=== PATIENT | male | born 1990 | race Caucasian/White ===

== ENCOUNTER 2024-08-24 09:42 | Outpatient (AMB) | payer BC, SELFPAY ==
--- OUTSIDE RECORDS SUMMARY | 2024-08-24 09:45 | XMS_ITS | Referral Summary ---
Author Organization [facility] Address [address] [place] [address] Care Team Providers Care Goat Herder Name Role Phone Yanet Rios MD Primary Care Provide r Allergies No known active allergies Active Problems Problem Noted Date Diagnosed Date Pain and swelling of right forearm 2014 Incidental lung nodule 09/10/2013 Weight gain 06/02/2012 High-risk sexual behavior 06/02/2012 Overview (01/24/2017): Hetersexual , unprotected, wants to check STD especially HIV Vitamin d deficiency 06/02/2012 ALT (SGPT) level raised 11/30/2011 Nicotine dependence 11/22/2011 Overview (01/24/2017): Quit Mid April 2012 with nicotine Cig (still on it) 24 ---18 Tattoo 11/21/2011 Acute reaction to stress 11/21/2011 Insomnia 11/21/2011 Anxiety 11/21/2011 Immunizations Immunization Administration Dates Next Due Pneumococcal Polysaccharide Vaccine, 23 Valent 0 11/30/2011 Tetanus Toxoid, Reduced Diph theria Toxoid, and Acellular Pertussis Vaccine, Adsorbed 07/27/2011 Social History Tobacco Use Types Packs/Day Years Used Date Smoking Tobacco: Every Day Comments::STARTED AGE 10 YR NOW 1 PPD LAST 7 YRS SINCE AGE 14 YR Sex and Gender Information Value Date Recorded Sex Assigned at Male 08/07/2023 7:53 AM EDT Legal Sex Male 7:44 AM EDT Gender Identity Not on file Sexual Orientation Not on file Last Filed Vital Signs Vital Sign Reading Time Taken Comments Blood Pressure 130/88 2014 3:39 PM EDT Pulse 80 2014 3:39 PM EDT Temperature - - Respiratory Rate - - Oxygen Saturation - - Inhaled Oxygen Concentration - - Weight 91.6 kg (202 lb) 02/03/2014 9:29 AM EDT Height 180.3 cm (5' 11 ) 02/03/2014 9:29 AM EDT Body Mass Index 28.17 02/03/2014 9:29 AM EDT Plan of Treatment Not on file Procedures * Due to [place] [employer] law, this organization might not be sharing negative HIV tests. Procedure Name Priority Date/Time Associated Diagnosis Comments HEPATITIS C ANTIBODY W/REFLEX TO HCV RNA, QUANTITATIVE PCR Routine 11/05/2023 4:50 PM EDT Procreation management investigation and testing from Last 3 Months or Most Recently Relevant to Health Maintenance Results * Due to [place] [employer] law, this organization might not be sharing negative HIV tests. * Hepatitis C Antibody w/Reflex to HCV RNA, Quantitative PCR (11/05/2023 4:50 PM EDT) Hepatitis C Antibody NON-REACT WAYNE NON-REACT WAYNE 11/06/2023 5:03 AM EDT [employer] Comment: HCV antibody was non-reactive. There is no laboratory evidence of HCV infection. In most cases, no further action is required. However, if recent HCV exposure is suspected, a test for HCV RNA (test code 27718) is suggested. For additional information please refer to http://education.[employer]/faq/CJD87n0 (This link is being provided for informational/ educational purposes only.) Blood Structure of peripheral vein / Unknown Venipuncture / Unknown 11/05/2023 4:50 PM EDT 11/05/2023 5:00 PM EDT Narrative SHIRA SNOWMEGHANNCHRISTOPHER - 11/06/2023 5:03 AM EDT [facility] Received Date: us Angelina Stewart NP LAB BLOOD ORDERABLES Fin al Result SHIRA MALIK [address] [facility] [address], [place] [address], [place] [phone] [facility] [address] [facility] [address], [place] [address], [place] [phone] from Last 3 Months or Most Recently Relevant to Health Maintenance Insurance [facility] HMO/POS Care Teams Goat Herder Relationship Specialty Start Date End Date Basia-Yanet Hurtado MD [address] [place] [address] PCP - General Family Medicine 08/07/23
--- OUTSIDE RECORDS SUMMARY | 2024-08-24 09:45 | XMS_ITS | Clinical Summary ---
Author Organization [facility] Address [address] [place] [address] Care Team Providers Care Plate Drying Machine Tender Name Role Phone Unavailable Primary Care Provider Unavailabl e Allergies No known active allergies Social History Tobacco Use Types Packs/Day Years Used Date Smoking Tobacco: Every Day Sex and Gender Information Value Date Recorded Sex Assigned at Not on file Legal Sex Male 9:59 AM EDT Gender Identity Not on file Sexual Orientation Not on file Last Filed Vital Signs Vital Sign Reading Time Taken Comments Blood Pressure 136/80 09/11/2017 8:56 AM EDT Pulse 96 09/11/2017 8:56 AM EDT Temperature - - Respiratory Rate - - Oxygen Saturation 97% 09/11/2017 8:56 AM EDT Inhaled Oxygen Concentration - - Weight 89.8 kg (198 lb) 09/11/2017 8:56 AM EDT Height 180.3 cm (5' 11 ) 09/11/2017 8:56 AM EDT Body Mass Index 27.62 09/11/2017 8:56 AM EDT Plan of Treatment Health Maintenance Due Date Last Done Comments Hepatitis C Screening 1989 DTaP/Tdap/Td (1 - Tdap) 08/13/2007 Hep B (1 of 3 - 19+ 3-dose series) 2008 COVID-19 Vaccine ( - 2023-2 5 season) 2024 Influenza (#1) 2024 Zoster (Shingrix) (1 of 2) 08/13/2039 HPV Vaccine Aged Out No longer eligi ble based on patient's age to complete this topic Hep A Aged Out No longer eligi ble based on patient's age to complete this topic Hib Aged Out No longer eligi ble based on patient's age to complete this topic Meningococcal ACWY Aged Out No longer eligible based on patient's age to complete this topic Pneumococcal Aged Out No longer eligi ble based on patient's age to complete this topic
--- OUTSIDE RECORDS SUMMARY | 2024-08-24 09:45 | XMS_ITS | Clinical Summary ---
Author Organization [facility] Address [address] [place] [address] Care Team Providers Care Tape Coater Name Role Phone Yanet Rios MD Primary [...] Toxoid, and Acellular Pertussis Vaccine, Adsorbed 07/27/2011 Family History Medical History Relation Name Comments Other Father Family History of diabetes mellitus Other Father's Sister Paternal aun t's history of Breast Cancer Other Maternal Grandfather Materna l grandfather's history of Acute Myocardial Infarction Other Other 1 Denied Family h istory of Hypertension Other Other 2 Denied Family h istory of Depression Other Paternal Grandfather Paterna l grandfather's history of Emphysema Other Paternal Grandmother Paterna l grandmother's history of Diabetes Mellitus Relation Name Status Comments Father Father's Sister Maternal Grandfather Other 1 Other 2 Paternal Grandfather Paternal Grandmother Social History Tobacco Use Types Packs/Day Years [...] 02/03/2014 9:29 AM EDT Plan of Treatment Health Maintenance Due Date Last Done Comments Varicella Vaccines (1 of 2 - 13+ 2-dose series) 2002 Hepatitis B Vaccines (1 of 3 - 19+ 3-dose series) 2008 Pneumococcal Vaccine: Pediat carroll (0-5 Years) and At-Risk Patients (6-50 Years) (2 of 2 - PCV) 11/29/2012 11/30/2011 DTaP,Tdap,and Td Vaccines (2 - Td or Tdap) 07/26/2021 07/27/2011 COVID-19 Vaccine ( - 2023- season) 2024 Alcohol/Substance Use Screening 05/06/2024 Depression Screening and Follow-Up 05/06/2024 Social Drivers of Health Annual Screening 05/06/2024 Influenza Vaccine (Season Ended) 2025 RSV Vaccine (60+ years old a nd patients) (1 - 1-dose 75+ series) 2064 HIV Screening Completed 11/05/2023 Hepatitis C Screening Completed 11/05/2023, 013 Procedures * Due to [place] state law, this organization might not be sharing negative HIV tests. Procedure Name Priority Date/Time Associated Diagnosis Comments HEPATITIS C ANTIBODY W/REFLEX TO HCV RNA, QUANTITATIVE PCR Routine 11/05/2023 4:50 PM EDT Procreation management investigation and testing from Last 3 Months or Most Recently Relevant to Health Maintenance Results * Due to [place] state law, this organization might not be sharing negative HIV tests. * Hepatitis C Antibody w/Reflex to HCV RNA, Quantitative PCR (11/05/2023 4:50 PM EDT) Hepatitis C Antibody NON-REACT WAYNE NON-REACT WAYNE 11/06/2023 5:03 AM EDT [employer] Comment: HCV antibody was non-reactive. There is no laboratory evidence of HCV infection. In most cases, no further action is required. However, if recent HCV exposure is suspected, a test for HCV RNA (test code 15779) is suggested. For additional information please refer to http://education.Robert Applebaum MD/faq/DMF32c8 (This link is being provided for informational/ educational purposes only.) Blood Structure of peripheral vein / Unknown Venipuncture / Unknown 11/05/2023 4:50 PM EDT 11/05/2023 5:00 PM EDT Narrative SHIRA MALIK - 11/06/2023 5:03 AM EDT [facility] Received Date: Angelina Stewart NP LAB BLOOD ORDERABLES Fin al Result SHIRA MALIK [address] [facility] [address], [place] [address], [place] [phone] [facility] [address] [facility] [address], [place] [address], [place] [phone] from Last 3 Months or Most Recently Relevant to Health Maintenance Insurance [facility] HMO/POS Care Teams Tape Coater Relationship Specialty Start Date End Date Basia-Yanet Hurtado MD [address] [place] [phone] PCP - General Family Medicine 08/07/23
--- NOTE | 2024-08-24 10:02 | A.OFFPC_ITS ---
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 ?? Prior PCP:?Rickie Brewer In [facility] Last office visit/CPE:?2 yrs Acute issue(s):?Difficulty w/ sleep. Witnessed apneic Headaches ?? PMHx:? Abnormal [facility] of lung @ [facility]. SurgHx:?[place] teeth FHx:? Dad: DM. Mom: palpitations. Aunts w/ Breast CA SocHx: Quit cigs 2018. EtOH: quit 2018. 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 1. Little interest or pleasure in doing things: not at all 2. Feeling down, depressed, or hopeless: not at all 3. Trouble falling or staying asleep, or sleeping too much: more than half the days 4. Feeling tired or having little energy: several days 5. Poor appetite or overeating: not at all 6. Feeling bad about yourself - or that you are a failure or have let yourself or your family down: not at all 7. Trouble concentrating on things, such as reading the newspaper or watching television: not at all 8. Moving or speaking so slowly that other people could have noticed. Or the opposite - being so fidgety or restless that you have been moving around a lot more than usual: not at all 9. Thoughts that you would be better off or of hurting yourself in some way: not at all Total score: 3 Depression Screening Interpretation: Negative Depression Screening Done: Yes 31370 - PHQ-9 Billing: Yes Source: Developed by Drs. Ahmet Huertas, Abiola Juan, Elias Jennings and colleagues, with an educational alonso from [employer]. Thrive Questionnaire Date Thrive assessed: 08/24/24 I am a: Patient What is your living situation today?: I have a steady place to live Within the past 12 months, did the food you bought not last and you didn't have the money to get more?: Never true Within the past 12 months, did you worry whether your food would run out before you got money to buy more?: Never true Do you have trouble paying for medicines?: No Do you have trouble getting transportation to medical appointments?: No Do you have trouble paying your heating and electricity bill?: No Do you have trouble taking care of your child, family member or friend?: No Do you have trouble with day-to-day activities such as bathing, preparing meals, shopping, managing finances, etc.?: No Are you currently unemployed and looking for a job?: No Are you interested in more education?: No Please select the resources that you would like help with: None Currently or been in a relationship where the following occur: No concerns reported THRIVE Score: 0 AUDIT C Alcohol Use Questionnaire (AUDIT-C) 1. How often do you have a drink containing alcohol?: Never 2. How many drinks containing alcohol do you have on a typical day when you are drinking?: 1 or 2 3. How often do you have six or more drinks on one occasion?: Never Total Score: 0 Score Reviewed/Action Taken: Yes VIJI-7 AMB Questionnaire VIJI-7 Date VIJI - 7 assessed: 08/24/24 Feeling nervous, anxious, or on edge: 1 = Several days Not being able to stop or control worryin = Not at all Worrying too much about different things: 0 = Not at all Trouble relaxin = Not at all Being so restless that it is hard to sit still: 0 = Not at all Becoming easily annoyed or irritable: 0 = Not at all Feeling afraid as if something awful might happen: 0 = Not at all Total VIJI-7 score (0-4 normal; 5-9 mild; 10-14 moderate; 15-21 severe): 1 Source: Developed by Drs. Ahmet Huertas, Abiola Juan, Elias Jennings and colleagues, with an educational alonso from [employer]. VIJI-7 Assessment Billing VIJI-7 Assessment Tool: VIJI-7 Assessment 66760 Review of Systems Const Denies chills, Denies fatigue, Denies fever(s), Denies headache(s) and Denies weakness ENT Denies dizziness and Denies headache(s) Card Denies chest pain, Denies lightheadedness, Denies dyspnea and Denies other (Palpitations) Resp Denies cough, Denies dyspnea, Denies wheezing and Denies other ( shortness of breath) Musc Denies numbness and Denies tingling Neuro Denies dizziness, Denies headache(s), Denies numbness, Denies tingling, Denies paresthesias and Denies weakness Psych Denies anxiety and Denies depression Endo Denies fatigue Aller/Immun Denies wheezing Physical exam (Primary Care) Vital Signs: Last Vital Signs Temp 98.0 F 08/24/24 10:10 Pulse 65 08/24/24 10:10 Resp 16 08/24/24 10:10 BP 120/70 08/24/24 10:10 Pulse Ox 95 08/24/24 10:10 Oxygen Delivery Method Room Air 08/24/24 10:10 BMI result Body Mass Index 33.0 Tobacco/Smoking Status: Tobacco use Status Tobacco use date assessed 08/24/24 08/24/24 10:11 Patient Tobacco Use Status Never used Tobacco 08/24/24 10:11 e-Cigarette/Vaping Use Never Used 08/24/24 10:11 PHQ-9: PHQ-9 Score PHQ-9: Total score 3 08/24/24 10:12 Depression Screening Interpretation: Negative Thrive Assessment: Date of Thrive Assessment Date Thrive assessed 08/24/24 08/24/24 10:11 Currently or been in a relationship where the following occur: No concerns reported Const General: no acute distress and well developed Nutritional Appearance: well nourished Orientation/consciousness: patient oriented x3 HENMT Head: Yes normocephalic and Yes atraumatic Eyes General: appearance normal, both eyes and all related structures Pupils: Equal, round and reactive pupils present EOM: EOMs intact bilaterally Resp Effort & Inspection: normal respiratory effort Auscultation: clear to auscultation bilaterally Cardio Rate: regular rate Rhythm: regular rhythm Heart sounds: S1 normal heart sound present, S2 normal heart sound present, no gallops, no murmurs and no rubs Neuro General: patient oriented x3 and gait normal Cranial nerves: Yes Equal, round and reactive pupils present Psych Affect: normal affect Coding Level of Care Code New Pt Level 3 (04997) Diagnoses Sleep apnea G47.30 Headache R51.9 Laboratory exam ordered as part of routine general medical examination Z00.00 Additional Codes VIJI-7 Assessment Billing - VIJI-7 Assessment Tool: VIJI-7 Assessment 88660 ([id number]) PHQ-9 - 38125 - PHQ-9 Billing: Yes ([id number]) Assessment & Plan Assessment & Plan (1) Sleep apnea: Code(s): G47.30 - Sleep apnea, unspecified Category: Medical Plan: Gasping,?holding?breath,?witnessed?apneic?events?by?partner?and?significant?head aches. Referred?to?Sleep?Medicine Advised?he?remains?sleeping?on?his?side (2) Headache: Code(s): R51.9 - Headache, unspecified Category: Medical Plan: As?above,?likely?secondary?to?sleep?apnea Advised?good?hydration (3) Laboratory exam ordered as part of routine general medical examination: Code(s): Z00.00 - Encounter for general adult medical examination without abnormal findings Category: Medical Plan: Check?labs Orders: Orders Comprehensive [place]. Panel Fast Today Z00.00 - Encounter for general adult medical examination without abnormal findings Microalbumin, Random (w Creat) Today I10 - Essential (primary) hypertension Lipid Panel Today Z00.00 - Encounter for general adult medical examination without abnormal findings TSH reflex Free T4 Today Z00.00 - Encounter for general adult medical examination without abnormal findings Complete Blood Count Auto Diff Today Z00.00 - Encounter for general adult medical examination without abnormal findings Prostate Specific Antigen Scr Today Z12.5 - Encounter for screening for malignant neoplasm of prostate UA CC w/rflx Micro + Cult Today Z00.00 - Encounter for general adult medical examination without abnormal findings Referrals Sleep Medicine Referral G47.30 - Sleep apnea, unspecified
[2024-08-24 10:10] VITALS: BP 120/70; PULSE 65; RESP 16; TEMP 36.7; O2SAT 95; BMI 33.0
== END 2024-08-24 12:29 | disposition home or self-care (01) ==
PROVIDERS: PCP Family Medicine; Visit Provider Family Medicine
DX: G47.30 Sleep apnea, unspecified (principal); R51.9 Headache, unspecified; Z00.00 Encounter for general adult medical examination without abnormal findings

== ENCOUNTER → 2024-08-24 09:42 | Outpatient (BNVA) | payer BC, SELFPAY | PROVIDERS: Visit Provider Family Medicine | DX: Z00.00 Encounter for general adult medical examination without abnormal findings (principal); G47.30 Sleep apnea, unspecified; R51.9 Headache, unspecified | CPT/HCPCS: 96127 ==

== ENCOUNTER 2024-10-13 13:48 | Outpatient (AMB) | payer BC, SELFPAY ==
--- NOTE | 2024-10-13 13:54 | A.OFFVIS_ITS ---
Vital Signs 10/13/24 13:56 Height 6 ft Weight 243 lb 4 oz BMI 33.0 Pulse 72 Pulse Source Pulse Oximeter Pulse Oximetry (%) 98 Oxygen Delivery Method Room Air Intake Visit Reasons: INP - Sleep apnea Intake Note: Patient presents ADMINISTRATIVE PROFESSIONAL Sleep Apnea. Gasping, holding breath, witnessed apneic events by partner and significant headaches. Patient also snores. Also states has had frequent headaches that start at back of head every day for weeks at a time(talking Tylenol everyday while attack) has not had one in few weeks. Accompanied by: Self / Same As Patient Allergies No Known Allergies Allergy (Verified 10/13/24 13:59) HPI Comments Details: 34 year old male is here for sleep evaluation. He gasps for air, snores loudly, holds his breath, per his . 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 Headaches usually come on in the evenings base of the head 6/10, throbbing localized, with photophobia/ phonophobia denies triggers of smells, n/v, denies gait or balance difficuty. This will occur for 3-4 days consecutively and then go away, he takes tylenolol. He tries to be in bed by 8 and gets up at 4am / 4pm. He has trouble falling asleep and staying asleep he takes Unisom daily. He feels chronically fatigued. RLS symptoms bilaterally uncomfortable sensation of the feet, has the urge to move them alot. Denies numbness, tingling, and burning pain. Denies bruxism. Mood, diet, and memory is stable. He is very active 3-4x a week, has a home gym, drinking 60% of body weight in water. FH of mom having anxiety and palpitations at 65, and dad at 69 passed due to C/V difficulties during triple by pass. 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 Current occupational exposures/hazards: Yes Cognitive needs: No Hearing needs: No Vision needs: No Physical Exam Vital Signs: Last Vital Signs Pulse 72 10/13/24 13:56 Pulse Ox 98 10/13/24 13:56 Oxygen Delivery Method Room Air 10/13/24 13:56 BMI result Body Mass Index 33.0 Const General: cooperative, comfortable and no acute distress Nutritional Appearance: average body habitus Orientation/consciousness: patient oriented x3 HEENT Face and sinus: Yes face symmetric Teeth and gingiva: other (mallampti score of 3) Eyes Pupils: Equal, round and reactive pupils present Neck Neck: Yes full ROM Resp Effort & Inspection: normal respiratory effort and able to speak in complete sentences Neuro General: patient oriented x3 and moves all extremities Cranial nerves: Yes Facial sensation intact/muscles of mastication intact, Yes Equal, round and reactive pupils present, Yes Normal accommodation reflex present, Yes Normal facial strength present, Yes Midline tongue present, Yes Ability to bilaterally rotate head present and Yes Ability to bilaterally elevate shoulders present Gait exam (Neuro): Normal gait present Motor exam (neuro): 5/5 motor strength present throughout and Normal motor muscle tone present throughout Deep tendon reflexes (DTR's): Right triceps reflex intensity grade: 2+, Left triceps reflex intensity grade: 2+, Rt Biceps (C5, C6): 2+, Left biceps reflex intensity grade: 2+, Right brachioradialis reflex intensity grade: 2+, Left brac hioradialis reflex intensity grade: 2+, Right patellar reflex intensity grade: 2+, Left patellar reflex intensity grade: 2+, Right ankle reflex intensity grade: 2+ and Left ankle reflex intensity grade: 2+ Psych Appearance: grossly normal Attitude: cooperative Thought process: Normal thought process present Thought content: Normal thought content present Assessment & Plan Assessment & Plan (1) Excessive daytime sleepiness: Code(s): G47.19 - Other hypersomnia Category: Medical Plan HST Evaluation of snoring and gasping. Labs to r/o deficiencies Orders: Orders Ferritin Today G47.19 - Other hypersomnia Vitamin D 25-OH Total Today G47.19 - Other hypersomnia RT home sleep study Today G47.19 - Other hypersomnia Homocysteine Today G47.19 - Other hypersomnia, G47.9 - Sleep disorder, unspecified, R53.83 - Other fatigue Methylmalonic Acid Today G47.19 - Other hypersomnia, G47.9 - Sleep disorder, unspecified, R53.83 - Other fatigue Vitamin B12 and Folate Today G47.19 - Other hypersomnia Patient Instructions: Sleep Hygiene provided: set a scheduled bedtime and wake time to help regulate the circadian rhythm and balance the release of pituitary hormones. Sleep in a dark room, temperatures below 68 degrees, and no devices n bed. Limit caffeinated products 6 hours prior to bed, and limit fluids 2-4 hours prior to bed. Gentle night yoga, diffusing essential oils, and playing soft music can be relaxing. Coding Level of Care Code New Pt Level 4 (54908) Diagnoses Excessive daytime sleepiness G47.19 Time Spent (min) 30 Comment kathleen evaluation of new patient Sleep Questionnaire Difficulty falling asleep: Yes Difficulty staying asleep?: Yes Number of arousals: 2-6 Snoring: Yes Witnessed apneas: Yes Gasping arousals: Yes Nocturia: Yes GERD: No Vivid dreams: Yes Acting out dreams: Yes Abnormal behavior in sleep: Yes Abnormal movements in sleep: Yes Morning headaches: No Excessive daytime sleepiness: Yes Daytime naps: Yes Restless legs: No Hallucinations: No Sleep paralysis: Yes Drop attacks: No Sleep Study: No CPAP: No
[2024-10-13 13:56] VITALS: PULSE 72; O2SAT 98; BMI 33.0
--- OUTSIDE RECORDS SUMMARY | 2024-10-13 16:24 | XMS_ITS | Clinical Summary ---
Author Organization [facility] Address [address] [place] [address] Care Team Providers Care Flower Maker Name Role Phone Unavailable Primary Care Provider [...] ( - 2023-2 5 season) 2024 Influenza (Season Ended) 2025 Zoster (Shingrix) (1 of 2) 08/13/2039 HPV [...]
== END 2024-10-13 14:41 | disposition home or self-care (01) ==
LOC: HO.HSMS 13:49
PROVIDERS: PCP Family Medicine; Visit Provider Physician Assistant Medical
DX: G47.19 Other hypersomnia (principal)
CPT/HCPCS: 99204

== ENCOUNTER 2024-10-29 10:00 | Outpatient (REF) | payer BC, SELFPAY ==
--- OUTSIDE RECORDS SUMMARY | 2024-10-29 11:30 | XMS_ITS | Clinical Summary ---
Author Organization [facility] Address [address] [place] [address] Care Team Providers Care Picture Framer Name Role Phone Unavailable Primary Care Provider [...]
[2024-10-29 11:32] LABS: MANUAL DIFF FLAG NO
[2024-10-29 11:36] LABS: Basophils Absolute Auto 0.1 X10*3/uL (0.0-0.2); Basophils Percent Auto 0.9 % (0-2); Eosinophils Absolute Auto 0.1 X10*3/uL (0.0-0.4); Eosinophils Percent Auto 1.4 % (0-4); Hematocrit 49.5 % (42.0-52.0); Hemoglobin 16.8 g/dl (14.0-18.0); Imm Gran Abs Auto 0.01 X10*3/uL (0.00-0.03); Imm Gran Pct Auto 0.2 % (0.0-0.4); Lymphocytes Absolute Auto 2.5 X10*3/uL (1.2-4.9); Lymphocytes Percent Auto 43.1 % (20-40); Mean Corpuscular HGB Conc 33.9 g/dl (31.0-36.0); Mean Corpuscular Hemoglobin 28.7 pg (27.0-33.0); Mean Corpuscular Volume 84.5 fL (80.0-98.0); Mean Platelet Volume 9.5 fL (9.4-12.4); Monocytes Absolute Auto 0.5 X10*3/uL (0.1-1.2); Monocytes Percent Auto 8.4 % (2-11); Neutrophils Absolute Auto 2.7 x10*3/uL (2.0-8.3); Platelet Count 284 X10*3/uL (160-400); Red Blood Count 5.86 X10*6/uL (4.60-5.80); Red Cell Distribution Width 12.4 % (11.0-16.0); White Blood Count 5.8 X10*3/uL (4.8-10.8)
[2024-10-29 12:08] LABS: Alanine Aminotransferase 85 U/L (0-40); Albumin Level 4.7 g/dL (3.5-5.0); Alkaline Phosphatase 84 U/L (39-117); Anion Gap 10 (12-20); Aspartate Amino Transferase 40 U/L (5-37); Bilirubin Total 0.6 mg/dL (0.0-1.0); Blood Urea Nitrogen 15 mg/dL (9-16); Calcium 8.9 mg/dL (8.4-10.2); Carbon Dioxide 26 mmol/L (22-29); Chloride 107 mmol/L (96-108); Cholesterol 190 mg/dL (<200); Estimated Glomerular Filt Rate > 60; Glucose Fasting 85 mg/dL (60-99); HDL Cholesterol 37 mg/dL (>40); LDL Cholesterol Calculated 124 mg/dL (<100); Sodium 139 mmol/L (135-145); Total Protein 7.6 g/dL (6.5-8.0); Triglycerides 146 mg/dL (<150)
[2024-10-29 12:19] LABS: TSH reflex Free T4 0.99 uIU/mL (0.32-4.0)
[2024-10-29 12:25] LABS: Ferritin 139 ng/mL (20-250); Vitamin D 25-OH Total 17.8 ng/mL (>30)
[2024-10-29 12:27] LABS: Prostate Specific Antigen Scr 0.78 ng/mL (<0.05-4.0)
[2024-10-29 12:40] LABS: Folate 7.7 ng/mL (> or = 4.0); Vitamin B12 469 pg/mL (200-900)
[2024-10-29 14:27] LABS: Appearance Urine Clear; Color Urine Yellow; Glucose Urine UA Negative (Negative); Leukocyte Esterase Urine Negative (Negative); Nitrite Urine Negative (Negative); PH 7.5 (5.0-9.0); Urine Blood Negative (Negative); Urine Ketones Negative (Negative); Urine Protein Negative (Neg-Trace)
[2024-10-29 15:07] LABS: Creatinine Urine 58.96 mg/dL; Microalbum/Creatinine Ratio Ur 13.5 ug/mg cr (<30)
[2024-11-01 10:22] LABS: Methylmalonic Acid 123 nmol/L (55-335)
== END 2024-10-29 10:01 | disposition home or self-care (01) ==
LOC: HO.WFDLDS 10:00
PROVIDERS: Referring Provider Physician Assistant Medical; Visit Provider Family Medicine
DX: Z00.00 Encounter for general adult medical examination without abnormal findings (principal)
CPT/HCPCS: 36415; 80053; 80061; 81003; 82043; 82306; 82570; 82607; 82728; 82746; 83921; 84153; 84443; 85025

== ENCOUNTER → 2025-01-05 12:45 | Outpatient (REF) | payer BC, SELFPAY ==
--- OUTSIDE RECORDS SUMMARY | 2025-01-05 13:57 | XMS_ITS | Clinical Summary ---
Author Organization [facility] Address [address] [place] [address] Care Team Providers Care Director Of Income Tax Name Role Phone Yanet Rios MD Primary [...] to stress 11/21/2011 Insomnia 11/21/2011 Anxiety 11/21/2011 Encounters Date Type Department Care Team Description 11/03/2024 Orders Only [facility] [address] [place] [address] - [place] [address] Rn Clinical Resource: Kristan Smyth RN Procreation management investigation and testing (Primary Dx) from Last 3 Months Immunizations Immunization Administration Dates Next Due Pneumococcal [...] (2 - Td or Tdap) 07/26/2021 07/27/2011 Alcohol/Substance Use Screening 05/06/2024 Depression Screening and Follow-Up 05/06/2024 Social Drivers of Health Andreea ual Screening 05/06/2024 COVID-19 Vaccine ( - season) 2025 Influenza Vaccine (#1) 2025 RSV Vaccine (60+ years old a nd patients) (1 - 1-dose 75+ series) 2064 HIV Screening Completed 11/04/2024, 11/05/2023 Hepatitis C Screening Completed 11/04/2024 , 11/05/2023, 06/02/2012 Procedures * Due to [place] law, this organization might not be sharing negative HIV tests. Procedure Name Priority Date/Time Associated Diagnosis Comments HEPATITIS B SURFACE ANTIGEN W/CONFIRMATION Routine 11/04/2024 2:33 PM EDT Procreation management investigation and testing HEPATITIS C ANTIBODY W/REFLEX TO HCV RNA, QUANTITATIVE PCR Routine 11/04/2024 2:33 PM EDT Procreation management investigation and testing HIV-1/2 ANTIGEN/ANTIBODIES 4TH GENERATION W/REFLEX Routine 11/04/2024 2:33 PM EDT Procreation management investigation and testing RPR (DIAGNOSIS) W/REFLEX TO TITER & TPPA [id number] Routine 11/04/2024 2:33 PM EDT Procreation management investigation and testing from Last 3 Months Results * Due to [place] state law, this organization might not be sharing negative HIV tests. * RPR (Diagnosis) w/Reflex to Titer & TPPA Confirm (11/04/2024 2:33 PM EDT) RPR W/Refl Titer NON-REACT WAYNE NON-REACT WAYNE 11/05/2024 11:08 AM EDT Contently [facility] Blood Structure of peripheral vein / Unknown Venipuncture / Unknown 11/04/2024 2:33 PM EDT 11/04/2024 2:41 PM EDT N[facility]ative [facility] 11/05/2024 11:08 AM EDT [facility] Received Date:[id number] us Kuldeep Cameron MD LAB BLOOD ORDERABLES Final Resu lt SHIRA MALIK [address] [place] [address] 3rd Floor, [place] [address], [place] [phone] Contently [facility] [address], [address] [facility] [place] [address], * Hepatitis C Antibody w/Reflex to HCV RNA, Quantitative PCR (11/04/2024 2:33 PM EDT) Hepatitis C Antibody NON-REACT WAYNE NON-REACT WAYNE 11/04/2024 11:23 PM EDT [facility] Comment: HCV antibody was non-reactive. There is no laboratory evidence of HCV infection. In most cases, no further action is required. However, if recent HCV exposure is suspected, a test for HCV RNA (test code 88705) is suggested. For additional information please refer to http://education.Shelf.com/faq/PIN33d5 (This link is being provided for informational/ educational purposes only.) Blood Structure of peripheral vein / Unknown Venipuncture / Unknown 11/04/2024 2:33 PM EDT 11/04/2024 2:41 PM EDT N[facility]ative [facility] 11/04/2024 11:23 PM EDT [facility] Received Date: Kuldeep Cameron MD LAB BLOOD ORDERABLES Final Resu lt SHIRA MALIK [address], [place] [address], Contently [facility] 200 [facility] [address] [facility], [place] [address], [place] [phone] * HIV-1/2 Antigen/Antibodies 4th Generation w/Reflex (11/04/2024 2:33 PM EDT) Pathologist [facility] HIV Final Interp See Comments 11/04/2024 10:57 PM EDT [facility] Comment: HIV Negative HIV-1 antigen and HIV-1/HIV-2 antibodies were not detected. There is no laboratory evidence of HIV infection. Blood Structure of peripheral vein / Unknown Venipuncture / Unknown 11/04/2024 2:33 PM EDT 11/04/2024 2:41 PM EDT Narrative SHIRA MALIK - 11/04/2024 10:57 PM EDT [facility] Received Date:[id number] Kuldeep Cameron MD LAB BLOOD ORDERABLES Final Resu lt SHIRA MALIK [address], [place] [address], [place] [phone] Contently [facility] [address], [place] [address], [place] [phone] * Hepatitis B Surface Antigen W/Confirmation (11/04/2024 2:33 PM EDT) Hepatitis B Surface Antigen NON-REACT WAYNE NON-REACT WAYNE 11/05/2024 6:35 AM EDT [facility] Comment: For additional information, please refer to http://education.Shelf.com/faq/EIY750 (This link is being provided for informational/ educational purposes only.) Blood Structure of peripheral vein / Unknown Venipuncture / Unknown 11/04/2024 2:33 PM EDT 11/04/2024 2:41 PM EDT Narrative SHIRA MALIK - 11/05/2024 6:35 AM EDT [facility] Received Date:[id number] Kuldeep Cameron MD LAB BLOOD ORDERABLES Final Resu lt SHIRA MALIK [address], [place] [address], [place] [phone] Contently [facility] [address], [place] [address], [place] [phone] from Last 3 Months Insurance [facility] H[facility]/POS Care Teams Director Of Income Tax Relationship Specialty Start Date End Date Geddkandy-Yanet Hurtado MD [address] [place] [address] PCP - General Family Medicine 08/07/23
--- OUTSIDE RECORDS SUMMARY | 2025-01-05 13:57 | XMS_ITS | Clinical Summary ---
Author Organization [facility] Address [address] [place] [address] Care Team Providers Care Note Keeper Name Role Phone Unavailable Primary Care Provider [...] COVID-19 Vaccine ( - 2023-2 5 season) 2025 Influenza (#1) 2025 Zoster (Shingrix) (1 of 2) 08/13/2039 HPV Vaccine (No Doses Required) Completed Hep A Aged Out No longer eligi [...]
--- OUTSIDE RECORDS SUMMARY | 2025-01-05 13:57 | XMS_ITS | Clinical Summary ---
Author Organization [facility] Address [address] [address] Phone Care Team Providers Care Clinical Data Research Name Role Phone Fuad Montana MD Primary Care Provider Social History Tobacco Use Types Packs/Day Years Used Date Smoking Tobacco: Never Assessed Education Answer Date Recorded Are you interested in more education? Not on reggie e 02/06/2024 Are you concerned about learning? Not on file 02/06/2024 No 02/06/2024 No 02/06/2024 Digital Access Answer Date Recorded No 02/06/2024 No 02/06/2024 Reliable internet access at home? Not on file 02/06/2024 Device with a working camera? Not on file Sex and Gender Information Value Date Recorded Sex Assigned at Not on file Legal Sex Male 3:48 PM EDT Gender Identity Not on file Sexual Orientation Not on file Plan of Treatment Health Maintenance Due Date Last Done Comments Adult Td,Tdap Booster 1989 LIPID PANEL 1989 DEPRESSION SCREENING 2001 SMOKING Hx and SMOKELESS TOB ACCO SCREENING 2002 HIV ONE-TIME SCREENING (18-6 5 YEARS) 08/13/2007 COVID-19 VACCINE (2023-2 5 season) 2024 HEPATITIS C SCREENING Completed 11/05/2023 HEPATITIS A VACCINES Aged Out No long er eligible based on patient's age to complete this topic HIB VACCINES Aged Out No longer eligi ble based on patient's age to complete this topic MENINGOCOCCAL VACCINES (ACWY) Aged Out No longer eligible based on patient's age to complete this topic MENINGOCOCCAL VACCINES (B) Aged Out N o longer eligible based on patient's age to complete this topic PNEUMOCOCCAL VACCINES (0-49 years) Aged Out No longer eligible based on patient's age to complete this topic Medical Devices Not on file Insurance [facility] Care Teams Clinical Data Research Relationship Specialty Start Date End Date Fuad Montana MD [address] [place] [address] PCP - General Family Medicine 02/25/24 Additional Source Comments The information contained in this document represents components of the legal health record. It is not the complete legal health record.[facility]
== END ==
LOC: HO.SL 12:45
PROVIDERS: PCP Family Medicine; Visit Provider Physician Assistant Medical
DX: G47.19 Other hypersomnia (principal); R06.83 Snoring
CPT/HCPCS: 95806

== ENCOUNTER → 2025-01-05 13:12 | Outpatient (BNV) | payer BC, SELFPAY | PROVIDERS: PCP Family Medicine; Visit Provider Psychiatry & Neurology Neurology | DX: R06.83 Snoring (principal) | CPT/HCPCS: 95806 ==

== ENCOUNTER 2025-01-07 13:47 | Outpatient (REF) | payer BC, SELFPAY ==
[2025-01-07 17:53] LABS: MANUAL DIFF FLAG NO
[2025-01-07 18:15] LABS: Hematocrit 48.5 % (42.0-52.0); Hemoglobin 16.9 g/dl (14.0-18.0); Imm Gran Abs Auto 0.02 X10*3/uL (0.00-0.03); Imm Gran Pct Auto 0.2 % (0.0-0.4); Lymphocytes Absolute Auto 2.7 X10*3/uL (1.2-4.9); Mean Corpuscular HGB Conc 34.8 g/dl (31.0-36.0); Mean Corpuscular Hemoglobin 29.1 pg (27.0-33.0); Mean Corpuscular Volume 83.6 fL (80.0-98.0); NRBC Abs Auto 0.000 X10*3/uL (0.0-0.012); NRBC Pct Auto 0.0 /100WBC (0.0-0.2); Platelet Count 288 X10*3/uL (160-400); Red Blood Count 5.80 X10*6/uL (4.60-5.80); White Blood Count 8.1 X10*3/uL (4.8-10.8)
[2025-01-07 18:44] LABS: Alanine Aminotransferase 205 U/L (0-40); Albumin Level 5.0 g/dL (3.5-5.0); Alkaline Phosphatase 89 U/L (39-117); Aspartate Amino Transferase 425 U/L (5-37); Gamma Glutamyl Transpeptidase 72 U/L (11-51); Iron 111 mcg/dL (45-160); Percent Iron Saturation 37 % (15-50); Total Iron Binding Capacity 300 mcg/dL (228-428); Total Protein 7.8 g/dL (6.5-8.0); Unsaturated Iron Binding 189 ug/dL
[2025-01-07 18:49] LABS: Ferritin 130 ng/mL (20-250)
[2025-01-08 04:23] LABS: HBsAGNum1 0.42 S/CO (0.00-0.99); Hepatitis B Surface Antigen Negative (Negative); ~HepC Num1 0.16 S/CO (0.00-0.79); ~Hepatitis C Antibody Nonreactive (Nonreactive)
== END 2025-01-07 13:48 | disposition home or self-care (01) ==
LOC: HO.WFDLDS 13:47
PROVIDERS: PCP Family Medicine; Visit Provider Physician Assistant
DX: Z00.00 Encounter for general adult medical examination without abnormal findings (principal); R79.89 Other specified abnormal findings of blood chemistry; G47.30 Sleep apnea, unspecified; R94.5 Abnormal results of liver function studies
CPT/HCPCS: 36415; 80076; 82728; 82977; 83540; 85025; 86803; 87340

== ENCOUNTER 2025-01-07 13:47 | Outpatient (AMB) | payer BC, SELFPAY ==
--- NOTE | 2025-01-07 13:51 | MHC.PC.OV ---
Vital Signs 01/07/25 14:03 Height 6 ft Weight 236 lb BMI 32.0 BP 116/84 Blood Pressure Location Rt brachial Position Sitting Respiration 16 Pulse 107 H Pulse Source Pulse Oximeter Temp 98.5 F Temp Source Oral Pulse Oximetry (%) 98 Oxygen Delivery Method Room Air Intake Visit Reasons: CPE with f/u labs and health maint. 30 mins Intake Note: Physical Entry Level Account Manager Required: No Allergies No Known Allergies Allergy (Verified 01/07/25 13:52) Medication List - Last Reconciled 01/07/25 by Li Bryan PA-C cholecalciferol (vitamin D3) (Vitamin D3) 25 mcg PO DAILY 3 months MDD 25mcg Tobacco use date assessed: 01/07/25 Dental Screening Dental Screen Date: 08/24/24 HPI CPE with f/u labs and health maint. 30 mins HPI Details Patient is a 34-year-old male who presents today for a physical exam. MSK: He does complain today of left anterior mid arm pain. States that it started after he was lifting and changing a tire about a month ago. The pain has gotten better. It is worse if he moves his wrists and does supination and pronation movements. He has not tried resting the injured area. Denies any numbness, tingling or weakness. GI: Recent labs by PCP showed elevated LFTs. States that he has a history of alcohol abuse but has not drank in 6 years. For about 8-10 years he was drinking about a pt of whiskey and a couple beers a day. Overall he and his are eating healthy and paying attention to diet and exercise. 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 Current occupational exposures/hazards: Yes Cognitive needs: No Hearing needs: No Vision needs: No Questionnaire Thrive Questionnaire Date Thrive assessed: 08/21/24 I am a: Patient What is your living situation today?: I have a steady place to live Within the past 12 months, did the food you bought not last and you didn't have the money to get more?: Never true Within the past 12 months, did you worry whether your food would run out before you got money to buy more?: Never true Do you have trouble paying for medicines?: No Do you have trouble getting transportation to medical appointments?: No Do you have trouble paying your heating and electricity bill?: No Do you have trouble taking care of your child, family member or friend?: No Do you have trouble with day-to-day activities such as bathing, preparing meals, shopping, managing finances, etc.?: No Are you currently unemployed and looking for a job?: No Are you interested in more education?: No Please select the resources that you would like help with: None Currently or been in a relationship where the following occur: No concerns reported THRIVE Score: 0 AUDIT C Alcohol Use Questionnaire (AUDIT-C) 1. How often do you have a drink containing alcohol?: Never 3. How often do you have six or more drinks on one occasion?: Never Total Score: 0 VIJI-7 AMB Questionnaire VIJI-7 Date VIJI - 7 assessed: 08/24/24 Source: Developed by Drs. Ahmet Huertas, Abiola Juan, Elias Jennings and colleagues, with an educational alonso from [employer]. Physical exam (Primary Care) Vital Signs: Last Vital Signs Temp 98.5 F 01/07/25 14:03 Pulse 107 H 01/07/25 14:03 Resp 16 01/07/25 14:03 BP 116/84 01/07/25 14:03 Pulse Ox 98 01/07/25 14:03 Oxygen Delivery Method Room Air 01/07/25 14:03 BMI result Body Mass Index 32.0 Tobacco/Smoking Status: Tobacco use Status Tobacco use date assessed 01/07/25 01/07/25 13:52 Patient Tobacco Use Status Never used Tobacco 01/07/25 14:03 e-Cigarette/Vaping Use Never Used 01/07/25 14:03 Thrive Assessment: Date of Thrive Assessment Date Thrive assessed 08/21/24 01/07/25 13:52 Currently or been in a relationship where the following occur: No concerns reported Const Orientation/consciousness: patient oriented x3 HENMT Ears: hearing grossly normal bilaterally and TM's normal bilaterally General nose exam: No nasal polyps present Face and sinus: Yes sinuses nontender Mouth: Normal oral and palatal mucosa present Eyes Pupils: Equal, round and reactive pupils present EOM: EOMs intact bilaterally Neck Neck: Yes full ROM and Yes no lymphadenopathy Thyroid: Thyroid normal Chest Chest palpation & inspection: normal inspection of the chest Resp Auscultation: clear to auscultation bilaterally Cardio Rate: regular rate Rhythm: regular rhythm Heart sounds: S1 normal heart sound present and S2 normal heart sound present Peripheral pulses: Peripheral pulses 2+ throughout GI Other: Soft, nontender Auscultation: normal bowel sounds Rectal Exam - Male: Yes deferred General: Yes no CVA tenderness Back/Spine/Pelvis Other: Nontender Back: no CVA tenderness Skin General skin exam: no rashes or lesions noted Neuro General: patient oriented x3, gait normal, CN's II-XI intact bilaterally and deep tendon reflexes 2+ bilaterally Cranial nerves: Yes Equal, round and reactive pupils present Motor exam (neuro): 5/5 motor strength present throughout Sensory Exam: double simultaneous stimulation for sensation normal Coordination: [id number] test normal and Romberg test negative Extrem General: Yes normal to inspection and Yes full ROM Psych Affect: normal affect Attitude: cooperative Thought process: Normal thought process present Thought content: Normal thought content present Insight: Good insight present (Psych) Judgement: Good judgement present (Psych) Coding Level of Care Code Est Pt Prev Care 18-39y(24349) Diagnoses Routine general medical examination at a health care facility Z00.00 Low vitamin D level R79.89 Sleep apnea G47.30 Elevated LFTs R79.89 Assessment & Plan Assessment & Plan (1) Routine general medical examination at a health care facility: Code(s): Z00.00 - Encounter for general adult medical examination without abnormal findings Plan: Health maintenance reviewed. Labs ordered today. (2) Low vitamin D level: Code(s): R79.89 - Other specified abnormal findings of blood chemistry Category: Medical Plan: Compliant with supplement (3) Sleep apnea: Code(s): G47.30 - Sleep apnea, unspecified Category: Medical Plan: Completed this yesterday. Waiting for results (4) Elevated LFTs: Code(s): R79.89 - Other specified abnormal findings of blood chemistry Category: Medical Plan: Labs and ultrasound ordered Orders: Orders Hepatitis C Antibody Today R79.89 - Other specified abnormal findings of blood chemistry, R94.5 - Abnormal results of liver function studies, Z00.00 - Encounter for general adult medical examination without abnormal findings IRON PROFILE Today R79.89 - Other specified abnormal findings of blood chemistry, R94.5 - Abnormal results of liver function studies, Z00.00 - Encounter for general adult medical examination without abnormal findings Ferritin Today R7.89 - Other specified abnormal findings of blood chemistry, R94.5 - Abnormal results of liver function studies, Z00.00 - Encounter for general adult medical examination without abnormal findings Liver Panel Today R7.89 - Other specified abnormal findings of blood chemistry, R94.5 - Abnormal results of liver function studies, Z00.00 - Encounter for general adult medical examination without abnormal findings Gamma Glutamyl Transpeptidase Today R79.89 - Other specified abnormal findings of blood chemistry, R94.5 - Abnormal results of liver function studies, Z00.00 - Encounter for general adult medical examination without abnormal findings Hepatitis B Surface Antigen Today R7.89 - Other specified abnormal findings of blood chemistry, R94.5 - Abnormal results of liver function studies, Z00.00 - Encounter for general adult medical examination without abnormal findings Complete Blood Count Auto Diff Today R7.89 - Other specified abnormal findings of blood chemistry, R94.5 - Abnormal results of liver function studies, Z00.00 - Encounter for general adult medical examination without abnormal findings US abdomen comp w elastography Today R7.89 - Other specified abnormal findings of blood chemistry, R94.5 - Abnormal results of liver function studies, Z00.00 - Encounter for general adult medical examination without abnormal findings
[2025-01-07 14:03] VITALS: BP 116/84; PULSE 107; RESP 16; TEMP 36.9; O2SAT 98; BMI 32.0
--- OUTSIDE RECORDS SUMMARY | 2025-01-07 15:04 | XMS_ITS | Clinical Summary ---
Author Organization [facility] Address [address] [place] [address] Care Team Providers Care Bioinformaticist Name Role Phone Unavailable Primary Care Provider [...]
--- OUTSIDE RECORDS SUMMARY | 2025-01-07 15:04 | XMS_ITS | Clinical Summary ---
Author Organization [facility] Address [address] [place] [address] Care Team Providers Care Arts Education Teacher Name Role Phone Yanet Rios MD Primary [...] Department Care Team Description 11/03/2024 Orders Only [facility] [address] [place] [address] - [place] [address] Horse Rancher: Kristan Smyth RN Procreation management investigation and [...] , 11/05/2023, 06/02/2012 Procedures * Due to [place] law, this organization might not be sharing [...] RPR (DIAGNOSIS) W/REFLEX TO TITER & TPPA [id number] Routine 11/04/2024 2:33 PM EDT Procreation management investigation and testing from Last 3 Months Results * Due to [place] state law, this organization might not be sharing negative HIV tests. * RPR (Diagnosis) w/Reflex to Titer & TPPA Confirm (11/04/2024 2:33 PM EDT) RPR W/Refl Titer NON-REACT WAYNE NON-REACT WAYNE 11/05/2024 11:08 AM EDT [facility] Blood Structure of peripheral vein / Unknown Venipuncture / Unknown 11/04/2024 2:33 PM EDT 11/04/2024 2:41 PM EDT Narrative [facility] - 11/05/2024 11:08 AM EDT [facility] Received Date:[id number] us Kuldeep Cameron MD LAB BLOOD ORDERABLES Final Resu lt SHIRA MALIK [address] [place] [address] [address]rd Floor, [place] [address], [place] [phone] [facility] [address], [address] [place] [address], * Hepatitis C Antibody w/Reflex to HCV RNA, Quantitative PCR (11/04/2024 2:33 PM EDT) Hepatitis C Antibody NON-REACT WAYNE NON-REACT WAYNE 11/04/2024 11:23 PM EDT [employer] [facility] Comment: HCV antibody was non-reactive. There is no laboratory evidence of HCV infection. In most cases, no further action is required. However, if recent HCV exposure is suspected, a test for HCV RNA (test code 97490) is suggested. For additional information please refer to http://education.Zanbato/faq/OPK34r7 (This link is being provided for informational/ educational purposes only.) Blood Structure of peripheral vein / Unknown Venipuncture / Unknown 11/04/2024 2:33 PM EDT 11/04/2024 2:41 PM EDT Narrative [facility] - 11/04/2024 11:23 PM EDT [facility] Received Date: Kuldeep Cameron MD LAB BLOOD ORDERABLES Final Resu lt SHIRA MALIK [address], [place] [address], [facility] 200 [facility] [address] [facility], [place] [address], [place] [phone] * HIV-1/2 Antigen/Antibodies 4th Generation w/Reflex (11/04/2024 2:33 PM EDT) Pathologist [facility] HIV Final Interp See Comments 11/04/2024 10:57 PM EDT [employer] [facility] Comment: HIV Negative HIV-1 antigen and HIV-1/HIV-2 antibodies were not detected. There is no laboratory evidence of HIV infection. Blood Structure of peripheral vein / Unknown Venipuncture / Unknown 11/04/2024 2:33 PM EDT 11/04/2024 2:41 PM EDT Narrative SHIRA MALIK - 11/04/2024 10:57 PM EDT [facility] Received Date:[id number] Kuldeep Cameron MD LAB BLOOD ORDERABLES Final Resu lt SHIRA MALIK [address], [place] [address], [place] [phone] [facility] [address], [place] [address], [place] [phone] * Hepatitis B Surface Antigen W/Confirmation (11/04/2024 2:33 PM EDT) Hepatitis B Surface Antigen NON-REACT WAYNE NON-REACT WAYNE 11/05/2024 6:35 AM EDT [employer] [facility] Comment: For additional information, please refer to http://education.Zanbato/faq/WSV775 (This link is being provided for informational/ educational purposes only.) Blood Structure of peripheral vein / Unknown Venipuncture / Unknown 11/04/2024 2:33 PM EDT 11/04/2024 2:41 PM EDT Narrative SHIRA MALIK - 11/05/2024 6:35 AM EDT [facility] Received Date:[id number] Kuldeep Cameron MD LAB BLOOD ORDERABLES Final Resu lt SHIRA MALIK [address], [place] [address], [place] [phone] [facility] [address], [place] [address], [place] [phone] from Last 3 Months Insurance [facility] HMO/POS Care Teams Arts Education Teacher Relationship Specialty Start Date End Date Geddkandy-Yanet Hurtado MD [address] [place] [address] PCP - General Family Medicine 08/07/23
--- OUTSIDE RECORDS SUMMARY | 2025-01-07 15:04 | XMS_ITS | Clinical Summary ---
Author Organization [facility] Address [address] [address] Phone Care Team Providers Care Mirror Painter Name Role Phone Fuad Montana MD Primary [...] topic Medical Devices Not on file Insurance [facility] Care Teams Mirror Painter Relationship Specialty Start Date End Date Fuad Montana MD [address] [place] [address] PCP - General Family Medicine 02/25/24 Additional Source Comments The information contained in this document represents components of the legal health record. It is not the complete legal health record.[facility]
== END 2025-01-07 14:37 | disposition home or self-care (01) ==
LOC: HO.HMCFM 13:48
PROVIDERS: PCP Family Medicine; Visit Provider Physician Assistant
DX: Z00.00 Encounter for general adult medical examination without abnormal findings (principal); R79.89 Other specified abnormal findings of blood chemistry; G47.30 Sleep apnea, unspecified

== ENCOUNTER 2025-01-14 08:23 | Outpatient (AMB) | payer BC, SELFPAY ==
--- NOTE | 2025-01-14 08:29 | A.OFFVIS_ITS ---
Vital Signs 01/14/25 08:30 Height 6 ft Weight 239 lb 6 oz BMI 32.5 Pulse 95 Pulse Source Pulse Oximeter Pulse Oximetry (%) 97 Oxygen Delivery Method Room Air Intake Visit Reasons: 3m follow up Intake Note: Patient presents follow up Sleep. Labs in chart. HST in chart(AHI-4, DANIEL-88%). Accompanied by: Self / Same As Patient Allergies No Known Allergies Allergy (Verified 01/14/25 08:32) HPI Comments Details: 34 year old male presents for a review of his sleep study. HST c/w AHI of 4.1 and oxygen desaturation to 88%, he has mild to moderate snoring. Labs reviewed with pt. AST ALT and GGT elevated followed by pcp. He gasps for air, snores loudly, holds his breath, per his . 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 He has headaches usually in the evenings which start at the base of the head and a dull throbbing localized pain 6/10, with photophobia/ phonophobia he denies triggers due to smells, n/v, he denies gait or balance difficulty. This will occur for 3-4 days consecutively and then go away, he takes tylenolol. He tries to be in bed by 8pm and gets up at 4am / 4pm. He has trouble falling asleep and staying asleep so he takes Unisom daily. He feels chronically fatigued. RLS symptoms bilaterally with an uncomfortable sensation of the feet, has the urge to move them a lot. Denies numbness, tingling, and burning pain. Mood, diet, and memory is stable. He is very active 3-4x a week, has a home gym so he works out at home and drinks plenty of water to stay hydrated. 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 Current occupational exposures/hazards: Yes Cognitive needs: No Hearing needs: No Vision needs: No Physical Exam Vital Signs: Last Vital Signs Pulse 95 01/14/25 08:30 Pulse Ox 97 01/14/25 08:30 Oxygen Delivery Method Room Air 01/14/25 08:30 BMI result Body Mass Index 32.5 Const General: cooperative, comfortable and no acute distress Nutritional Appearance: average body habitus Orientation/consciousness: patient oriented x3 HEENT Face and sinus: Yes face symmetric Teeth and gingiva: other (mallampti score of 3) Eyes Pupils: Equal, round and reactive pupils present Neck Neck: Yes full ROM Resp Effort & Inspection: normal respiratory effort and able to speak in complete sentences Neuro General: patient oriented x3 and moves all extremities Cranial nerves: Yes Facial sensation intact/muscles of mastication intact, Yes Equal, round and reactive pupils present, Yes Normal accommodation reflex present, Yes Normal facial strength present, Yes Midline tongue present, Yes Ability to bilaterally rotate head present and Yes Ability to bilaterally elevate shoulders present Gait exam (Neuro): Normal gait present Motor exam (neuro): 5/5 motor strength present throughout and Normal motor muscle tone present throughout Psych Appearance: grossly normal Attitude: cooperative Thought process: Normal thought process present Thought content: Normal thought content present Results Reviewed Results Reviewed: HST c/w AHI of 4.1 and oxygen desaturation to 88%, he has mild to moderate snoring. Labs reviewed with pt. AST ALT and GGT elevated followed by pcp. Assessment & Plan Assessment & Plan (1) Excessive daytime sleepiness: Code(s): G47.19 - Other hypersomnia Category: Medical (2) Loud snoring: Code(s): R06.83 - Snoring Category: Medical (3) Chronic headaches: Code(s): R51.9 - Headache, unspecified; G89.29 - Other chronic pain Category: Medical Qualifiers: Headache type: cluster Intractability: intractable Qualified Code(s): G44.021 - Chronic cluster headache, intractable (4) Nasal polyps: Code(s): J33.9 - Nasal polyp, unspecified Category: Medical Plan HST reviewed with pt. AHI is 4 and oxygen desaturation to 88%. Labs reviewed GGT / AST / ALT will f/u with pcp. ENT referral for polpys and r. sided nare pain with chronic blees. Sleep Dentistry referral for loud snoring, pt would like an evaluation for an oral device. f/u in 6 monhts Orders: Referrals Dentistry Referral R06.83 - Snoring Ear/Nose/Throat Referral G47.30 - Sleep apnea, unspecified, J33.9 - Nasal polyp, unspecified Patient Instructions: Sleep Hygiene provided: set a scheduled bedtime and wake time to help regulate the circadian rhythm and balance the release of pituitary hormones. Sleep in a dark room, temperatures below 68 degrees, and no devices n bed. Limit caffeinated products 6 hours prior to bed, and limit fluids 2-4 hours prior to bed. Gentle night yoga, diffusing essential oils, and playing soft music can be relaxing. Coding Level of Care Code Est Pt Level 4 (79549) Diagnoses Excessive daytime sleepiness G47.19 Loud snoring R06.83 Intractable chronic cluster headache G44.021 Headache type: cluster Intractability: intractable Nasal polyps J33.9
[2025-01-14 08:30] VITALS: PULSE 95; O2SAT 97; BMI 32.5
--- OUTSIDE RECORDS SUMMARY | 2025-01-14 09:25 | XMS_ITS | Clinical Summary ---
Author Organization [facility] Address [address] [address] Phone Care Team Providers Care Beer Brewer Name Role Phone Fuad Montana MD Primary [...] HIV ONE-TIME SCREENING (18-6 5 YEARS) 08/13/2007 INFLUENZA VACCINE (#1) 2024 COVID-19 VACCINE (2023-2 5 season) 2025 HEPATITIS C SCREENING Completed 11/05/2023 HEPATITIS A [...] topic Medical Devices Not on file Insurance [facility] Care Teams Beer Brewer Relationship Specialty Start Date End Date Fuad Montana MD [address] [place] [address] PCP - General Family Medicine 02/25/24 Additional Source Comments The information contained in this document represents components of the legal health record. It is not the complete legal health record.[facility]
--- OUTSIDE RECORDS SUMMARY | 2025-01-14 09:25 | XMS_ITS | Clinical Summary ---
Author Organization [facility] Address [address] [place] [address] Care Team Providers Care Tile Professional Name Role Phone Unavailable Primary Care Provider [...]
--- OUTSIDE RECORDS SUMMARY | 2025-01-14 09:25 | XMS_ITS | Clinical Summary ---
Author Organization [facility] Address [address] [place] [address] Care Team Providers Care Leather Finisher Name Role Phone Yanet Rios MD Primary [...] Department Care Team Description 11/03/2024 Orders Only [facility] [address] [place] [address] - [place] [address] Mission Manager: Kristan Smyth RN Procreation management investigation and [...] , 11/05/2023, 06/02/2012 Procedures * Due to [place] [employer] law, this organization might not be sharing [...] RPR (DIAGNOSIS) W/REFLEX TO TITER & TPPA [id number] Routine 11/04/2024 2:33 PM EDT Procreation management investigation and testing from Last 3 Months Results * Due to [place] state law, this organization might not be sharing negative HIV tests. * RPR (Diagnosis) w/Reflex to Titer & TPPA Confirm (11/04/2024 2:33 PM EDT) RPR W/Refl Titer NON-REACT WAYNE NON-REACT WAYNE 11/05/2024 11:08 AM EDT [facility] Blood Structure of peripheral vein / Unknown Venipuncture / Unknown 11/04/2024 2:33 PM EDT 11/04/2024 2:41 PM EDT Narrative [facility] 11/05/2024 11:08 AM EDT [facility] Received Date:[id number] us Kuldeep Cameron MD LAB BLOOD ORDERABLES Final Resu lt SHIRA MALIK [address] [place] [address] 3rd Floor, [place] [address], [place] [phone] [facility] [address], [address] [facility] [place] [address], * Hepatitis C Antibody w/Reflex to HCV RNA, Quantitative PCR (11/04/2024 2:33 PM EDT) Hepatitis C Antibody NON-REACT WAYNE NON-REACT WAYNE 11/04/2024 11:23 PM EDT [facility] Comment: HCV antibody was non-reactive. There is no laboratory evidence of HCV infection. In most cases, no further action is required. However, if recent HCV exposure is suspected, a test for HCV RNA (test code 55401) is suggested. For additional information please refer to http://education.[employer]/faq/OCT66o0 (This link is being provided for informational/ educational purposes only.) Blood Structure of peripheral vein / Unknown Venipuncture / Unknown 11/04/2024 2:33 PM EDT 11/04/2024 2:41 PM EDT Narrative [facility] 11/04/2024 11:23 PM EDT [facility] Received Date: Kuldeep Cameron MD LAB BLOOD ORDERABLES Final Resu lt [facility]IRA MALIK [address], [place] [address], [facility] 200 [facility] [address] [facility], [place] [address], [place] [phone] * HIV-1/2 Antigen/Antibodies 4th Generation w/Reflex (11/04/2024 2:33 PM EDT) Pathologist [facility] HIV Final Interp See Comments 11/04/2024 10:57 PM EDT [facility] Comment: HIV Negative HIV-1 antigen and HIV-1/HIV-2 antibodies were not detected. There is no laboratory evidence of HIV infection. Blood Structure of peripheral vein / Unknown Venipuncture / Unknown 11/04/2024 2:33 PM EDT 11/04/2024 2:41 PM EDT Narrative [facility] MAL[facility] - 11/04/2024 10:57 PM EDT [facility] Received Date:[id number] Kuldeep Cameron MD LAB BLOOD ORDERABLES Final Resu lt [facility] MALIK [address], [place] [address], [place] [phone] [facility] [address], [place] [address], [place] [phone] * Hepatitis B Surface Antigen W/Confirmation (11/04/2024 2:33 PM EDT) Hepatitis B Surface Antigen NON-REACT WAYNE NON-REACT WAYNE 11/05/2024 6:35 AM EDT [facility] Comment: For additional information, please refer to http://education.[employer]/faq/SGT030 (This link is being provided for informational/ educational purposes only.) Blood Structure of peripheral vein / Unknown Venipuncture / Unknown 11/04/2024 2:33 PM EDT 11/04/2024 2:41 PM EDT Narrative [facility] MALIK - 11/05/2024 6:35 AM EDT [facility] Received Date:[id number] Kuldeep Cameron MD LAB BLOOD ORDERABLES Final Resu lt [facility] MALIK [address], [place] [address], [place] [phone] [facility] [address], [place] [address], [place] [phone] from Last 3 Months Insurance [facility] HMO/POS Care Teams Leather Finisher Relationship Specialty Start Date End Date Geddkandy-Yanet Hurtado MD [address] [place] [phone] PCP - General Family Medicine 08/07/23
== END 2025-01-14 09:04 | disposition home or self-care (01) ==
LOC: HO.HSMS 08:24
PROVIDERS: PCP Family Medicine; Visit Provider Physician Assistant Medical
DX: G47.19 Other hypersomnia (principal); R06.83 Snoring; G44.021 Chronic cluster headache, intractable; J33.9 Nasal polyp, unspecified
CPT/HCPCS: 99214

== ENCOUNTER 2025-03-02 08:47 | Outpatient (REF) | payer BC, SELFPAY ==
--- NOTE | ~2025-03-02 | US_ITS ---
EXAMINATION: US COMPLETE ABDOMEN WITH LIVER ELASTOGRAPHY CLINICAL INFORMATION: Abnormal liver function tests COMPARISON: None available. TECHNIQUE: Real-time imaging of the abdominal viscera. Noninvasive ultrasound liver fibrosis assessment is performed using June ElastPQ point quantification shear wave elastography (pSWE) with a C5-2 MHz transducer. Multiple elastography samples are obtained. FINDINGS: PANCREAS: The visualized pancreatic head and body are normal in appearance. The remainder of the pancreas is obscured from visualization by the overlying bowel gas. ABDOMINAL AORTA: No aortic aneurysm is seen. INFERIOR VENA CAVA: Visualized portions are normal. LIVER: The liver demonstrates normal size, contour and echogenicity. No focal lesion or intrahepatic biliary duct dilatation. The right lobe measures 15 cm in length. The left lobe measures 10.7 cm in length. Portal flow is normal/hepatopedal Shear wave liver elastography median stiffness is 1.53 m/s (reference: normal median stiffness is 1.3 m/s or less). IQR/median stiffness to assess sampling precision is 0.33 (reference: good quality data set is IQR/median stiffness of 0.15 or less). GALLBLADDER: The gallbladder is physiologically distended without evidence of stones, sludge, polyps, wall thickening or pericholecystic fluid. COMMON BILE DUCT: Normal in caliber measuring 0.3 cm in diameter. RIGHT KIDNEY: No hydronephrosis. No renal calculi or focal parenchymal lesions. The kidney measures 12.7 cm in maximum dimension. LEFT KIDNEY: No hydronephrosis. No renal calculi or focal parenchymal lesions. The kidney measures 12.3 cm in maximum dimension. SPLEEN: Unremarkable. The spleen measures 11.3 cm in maximum dimension. FREE FLUID: None seen. US/US abdomen comp w elastography IMPRESSION: 1. Impression: Normal abdominal ultrasound. 2. Liver elastography: Liver stiffness is normal measuring 1.53 m/s however evaluation is limited due to poor sampling. REFERENCE: Society of Radiologists in Ultrasound Liver Stiffness Thresholds (2020): LIVER STIFFNESS THRESHOLDS: *Liver Stiffness equal or less than 1.3 m/s: High probability of being normal. *Liver Stiffness less than 1.7 m/s: In the absence of other known clinical signs, rules out compensated advanced chronic liver disease. *Liver Stiffness 1.7-2.1 m/s: Suggestive of compensated advanced chronic liver disease but need further test for confirmation. *Liver Stiffness over 2.1 m/s: Rules in compensated advanced chronic liver disease. *Liver Stiffness over 2.4 m/s: Suggestive of clinically significant portal hypertension. QUALITY OF DATA SET: *IQR/Median value equal or less than 0.15 implies a quality data set. *IQR/Median value over 0.15 implies a poor quality data set. SIGNIFICANT CHANGE FROM PRIOR EXAM: Significant change if liver stiffness measurement is 10% or greater from prior exam. OTHER CONSIDERATIONS: The stage of liver fibrosis may be overestimated in the setting of acute hepatitis, liver inflammation, elevated liver function tests, hepatic vascular congestion, obstructive cholestasis, non-fasting state, and infiltrative diseases such as amyloidosis and lymphoma. In some patients with NAFLD, the liver stiffness thresholds for compensated advanced chronic liver disease may be lower. In causes other than viral hepatitis and NAFLD, liver stiffness thresholds are not well established. Electronically signed by: Izzy Hamilton MD 03/02/2025 09:34 AM EDT
--- OUTSIDE RECORDS SUMMARY | 2025-03-02 09:32 | XMS_ITS | Clinical Summary ---
Author Organization [facility] Address [address] [place] [address] Care Team Providers Care Outside Operator Name Role Phone Yanet Rios MD Primary [...] ual Screening 05/06/2024 COVID-19 Vaccine ( - 2024- season) 2025 Influenza Vaccine (#1) 2025 RSV Vaccine (60+ years old a nd patients) (1 - 1-dose 75+ series) 2064 HIV Screening Completed 11/04/2024, 11/05/2023 Hepatitis C Screening Completed 11/04/2024 , 11/05/2023, 06/02/2012 Procedures * Due to [place] state law, this organization might not be [...] Health Maintenance Results * Due to [place] state law, this organization might not be sharing negative HIV tests. * Hepatitis C Antibody w/Reflex to HCV RNA, Quantitative PCR (11/04/2024 2:33 PM EDT) Hepatitis C Antibody NON-REACT WAYNE NON-REACT WAYNE 11/04/2024 11:23 PM EDT [id number] Comment: HCV antibody was non-reactive. There is no laboratory evidence of HCV infection. In most cases, no further action is required. However, if recent HCV exposure is suspected, a test for HCV RNA (test code 47996) is suggested. For additional information please refer to http://education.[employer]tax[employer]/faq/UZI25b0 (This link is being provided for informational/ educational purposes only.) Blood Structure of peripheral vein / Unknown Venipuncture / Unknown 11/04/2024 2:33 PM EDT 11/04/2024 2:41 PM EDT Narrative [facility] - 11/04/2024 11:23 PM EDT [facility] Received Date: us Kuldeep Cameron MD LAB BLOOD ORDERABLES Final Resu lt [facility] [address] [facility] 3rd Floor, [place] [address], [place] [phone] [facility] [address] [facility] [address] Floor, [place] [address], [place] [phone] * HIV-1/2 Antigen/Antibodies 4th Generation w/Reflex (11/04/2024 2:33 PM EDT) HIV Final Interp See Comments 11/04/2024 10:57 PM EDT [id number] Comment: HIV Negative HIV-1 antigen and HIV-1/HIV-2 antibodies were not detected. There is no laboratory evidence of HIV infection. Blood Structure of peripheral vein / Unknown Venipuncture / Unknown 11/04/2024 2:33 PM EDT 11/04/2024 2:41 PM EDT Narrative [facility] - 11/04/2024 10:57 PM EDT [facility] Received Date:[id number] us Kuldeep Cameron MD LAB BLOOD ORDERABLES Final Resu lt [facility] MALIK [address] [facility] 3rd Floor, [place] [address], [place] [phone] [facility] [address] [employer] 3rd Floor, [place] [address], [place] [phone] from Last 3 Months or Most Recently Relevant to Health Maintenance Insurance [facility] HMO/POS Care Teams Outside Operator Relationship Specialty Start Date End Date Basia-Yanet Hurtado MD [address] [place] [phone] PCP - General Family Medicine 08/07/23
--- OUTSIDE RECORDS SUMMARY | 2025-03-02 09:32 | XMS_ITS | Clinical Summary ---
Author Organization [facility] Address [address] [address] Phone Care Team Providers Care Professor Of Chemical Engineering Name Role Phone Fuad Montana MD Primary [...] 08/13/2007 INFLUENZA VACCINE (#1) 2024 COVID-19 VACCINE (2024-2 6 season) 2025 HEPATITIS C SCREENING Completed 11/05/2023 [...] topic Medical Devices Not on file Insurance [facility] Care Teams Professor Of Chemical Engineering Relationship Specialty Start Date End Date Fuad Montana MD PCP - General Family Medicine 02/25/24 Additional Source Comments The information contained in this document represents components of the legal health record. It is not the complete legal health record.[facility]
--- OUTSIDE RECORDS SUMMARY | 2025-03-02 09:32 | XMS_ITS | Clinical Summary ---
Author Organization [facility] Address [address] [place] [address] Care Team Providers Care Diver Pumper Name Role Phone Unavailable Primary Care Provider [...] 3-dose series) 2008 COVID-19 Vaccine ( - 2024-2 6 season) 2025 Influenza (#1) 2025 Zoster (Shingrix) [...]
--- OUTSIDE RECORDS SUMMARY | 2025-03-02 09:32 | XMS_ITS | Clinical Summary ---
Author Organization [facility] Address [address] [place] [address] Care Team Providers Care Buttoner Name Role Phone Unavailable Primary Care Provider Unavailabl e Encounters Date Type Department Care Team Description 01/20/2025 Transcribe Orders [facility] NEUROLOGY SCAN Alyce Melchor MD Sleep apnea, unspecified type (Primary Dx); Nasal polyp from Last 3 Months Social History Tobacco Use Types Packs/Day Years Used Date Smoking Tobacco: Never Assessed Sex and Gender Information Value Date Recorded Sex Assigned at Not on file Legal Sex Male 11:38 AM EDT Gender Identity Not on file Sexual Orientation Not on file Plan of Treatment Health Maintenance Due Date Last Done Comments Hepatitis C Virus Screening 1989 HIV Screening 2002 DTaP/Tdap/Td Vaccines (1 - Tdap) 2008 Hepatitis B Vaccines (1 of 3 - 19+ 3-dose series) 2008 COVID-19 Vaccine (2023-2 5 season) 2025 HPV Vaccines (No Doses Required) Completed Pneumococcal Vaccine: Pediat carroll (0-5 Years) and At-Risk Patients (6 to 49 Years) Aged Out No longer eligible b ased on patient's age to complete this topic
== END 2025-03-02 08:48 | disposition home or self-care (01) ==
LOC: HO.US 08:47
PROVIDERS: PCP Family Medicine; Visit Provider Physician Assistant
DX: R94.5 Abnormal results of liver function studies (principal); R79.89 Other specified abnormal findings of blood chemistry
CPT/HCPCS: 76700; 76981

== ENCOUNTER → 2025-03-02 08:49 | Outpatient (BNV) | payer BC, SELFPAY | PROVIDERS: PCP Family Medicine; Visit Provider Radiology Diagnostic Radiology | DX: R94.5 Abnormal results of liver function studies (principal) | CPT/HCPCS: 76700 ==